=== PATIENT | male | born 1975 | race Caucasian/White ===

== ENCOUNTER 2017-04-12 07:53 | Emergency (ER) | payer BC ==
[~2017-04-12] VITALS: Ht 185.4 cm; Wt 140.5 kg
[2017-04-12 07:58] VITALS: BP 171/101; PULSE 104; RESP 16; TEMP 98.3; O2SAT 96
[2017-04-12] MEDS ORDERED: BACT800T5 PO (08:26)
--- NOTE | 2017-04-12 08:26 | PD ---
HPI Chief Complaint: Facial Pain or Swelling Time Seen by Provider: 08:09 Travel History International Travel<30 days: No Contact w/Intl Traveler<30days: No Traveled to known affect area: No History of Present Illness HPI 41-year-old male presents to the emergency room for evaluation of an abscess to his upper lip that started 2 or 3 days ago. Patient states it started off as a small pimple. He tried to pop it and it got bigger the following day. He tried to pop again and it worsened again. He applied warm compresses to the area and got more drainage out of it this morning. Patient denies fever, chills , nausea, and vomiting. Denies chronic medical conditions or daily medications. PFSH Past Medical History Hx Anticoagulant Therapy: No Cardiovascular Problems: No Chemotherapy: No Cerebrovascular Accident: No Diabetes: No Respiratory: No Social History Tobacco Use: No Allergies-Medications (Allergen,Severity, Reaction): Coded Allergies: No Known Allergies (Unverified , 04/12/17) Reported Meds & Prescriptions Reported Meds & Active Scripts Active Bactrim DS (Sulfamethoxazole-Trimethoprim) 800-160 Mg Tab 1 Tab PO BID Review of Systems Except as stated in HPI: all other systems reviewed are Neg Physical Exam Narrative GENERAL: Well-nourished, well-developed male in no acute distress. Afebrile. Ambulatory. SKIN: Focused skin assessment warm/dry. There is an indurated area in the middle upper lip which measures about 2 cm in diameter. It is fluctuant but there is no pointing or drainage. There is a zone of inflammation around it but no lymphangitis. HEAD: Normocephalic. EYES: No scleral icterus. No injection or drainage. NECK: Supple, trachea midline. No JVD or lymphadenopathy. CARDIOVASCULAR: Regular rate and rhythm without murmurs, gallops, or rubs. RESPIRATORY: Breath sounds equal bilaterally. No accessory muscle use. PSYCHIATRIC: No delusional thought processes. No hallucinations. Data Data Last Documented VS Vital Signs Date Time Temp Pulse Resp B/P (MAP) Pulse Ox O2 Delivery O2 Flow Rate FiO2 04/12/17 08:51 94 97 Room Air 04/12/17 07:58 98.3 16 MDM Medical Decision Making Medical Screen Exam Complete: Yes Emergency Medical Condition: Yes Medical Record Reviewed: Yes Differential Diagnosis abscess, folliculitis, cellulitis Narrative Course 41-year-old male presents to the emergency room for evaluation of an abscess to his upper lip the past 2-3 days. Denies systemic signs of infection. Patient is afebrile well-appearing in the emergency room. States it spontaneously draining this morning. It is extremely indurated without significant fluctuance , erythema, or lymphangitis. Incision and drainage was attempted but because it is spontaneously draining, it cannot be properly anesthetized since the lidocaine weeps out of the wound. Patient cannot tolerate I&D without medication. He was told to start Bactrim and take until gone. Told to return within 2 days if symptoms have not improved. He understands and agrees to plan. Procedures Procedure Narrative INCISION AND DRAINAGE OF ABSCESS: The area was prepped and was sterilely draped. A subcutaneous wheal of 1% lidocaine with a total number 2 mL was used to anesthetize the area. The area was not fully anesthetized because the abscess was opened and the lidocaine weeped out. A number 11 scalpel was used to make a 2 mm incision across the area of the abscess. Patient did not tolerate the procedure well. Diagnosis Primary Impression: Lip abscess Referrals: Primary Care Physician Additional Instructions: Rest and drink plenty of fluids. Take Bactrim as directed, until gone. Follow up with a primary care physician. Return to emergency room for worsening symptoms, as discussed. Med/Other Pt SpecificInfo: Prescription(s) given Scripts Sulfamethoxazole-Trimethoprim (Bactrim DS) 800-160 Mg Tab 1 TAB PO BID for Infection, #20 TAB 0 Refills Prov: Effie Marshall MD 04/12/17 Disposition: 01 DISCHARGE HOME Condition: Stable Briseyda Webb Apr 12, 2017 08:26
[2017-04-12 08:39] VITALS: BP 163/122; PULSE 101; O2SAT 99
[2017-04-12 08:45] VITALS: BP 161/90
[2017-04-12 08:51] VITALS: PULSE 94; O2SAT 97
== END 2017-04-12 09:02 | disposition home or self-care (01) ==
LOC: NEPK 07:53
DX: L02.818 Cutaneous abscess of other sites (principal); K13.0 Diseases of lips
CPT/HCPCS: 10060